=== PATIENT | female | born 2000 | race American Indian/Alaskan Native ===

== ENCOUNTER 2021-12-01 05:46 | Emergency (ER) | payer SELFPAY ==
[2021-12-01] MEDS ORDERED: IPRATROPIUM/ALBUTEROL SULFATE 3 ML AMPUL.NEB IH ONE (06:13)
[2021-12-01] MEDS ORDERED: methylPREDNISolone Sod Succinate 125 MG/2 ML INJ IM ONE (06:13)
--- NOTE | 2021-12-01 06:22 | Emergency Department Report ---
ED Asthma HPI - General Stated Complaint: SOB/ASTHMA Time Seen by Provider: 12/01/21 06:13 Source: patient, EMS - History of Present Illness Initial Comments: Patient is 21 years old female with history of asthma. Patient brought to the emergency room via EMS from her workplace after patient started to have shortness of breath and wheezing. Upon arrival to the ER patient stated that she is feeling already better but is complaining of tightness in her chest. Patient reported symptoms of upper respiratory infection including dry cough runny nose and congestion. She denied any fever or chills. No chest pain. MD Complaint: "asthma attack", shortness of breath, wheezing -: This morning Severity: moderate Context: recent URI Associated Symptoms: dry cough - Related Data Current Asthma Therapy: none Allergies Allergy/AdvReac Type Severity Reaction Status Date / Time No Known Allergies Allergy Unverified 12/01/21 07:29 ED Review of Systems ROS: Stated complaint: SOB/ASTHMA Other details as noted in HPI Comment: All other systems reviewed and negative Constitutional: denies: chills, fever Respiratory: cough, shortness of breath, SOB with exertion, SOB at rest, wheezing. denies: orthopnea Cardiovascular: denies: chest pain, palpitations, dyspnea on exertion Gastrointestinal: denies: abdominal pain, nausea, vomiting, diarrhea, constipation, hematemesis, melena, hematochezia Musculoskeletal: denies: back pain Neurological: denies: headache, weakness, numbness, paresthesias, confusion, abnormal gait ED Physical Exam - General General appearance: alert, in no apparent distress - Head Head exam: Present: atraumatic, normocephalic, normal inspection - Eye Eye exam: Present: normal appearance - ENT ENT exam: Present: normal exam, normal orophraynx, mucous membranes moist - Neck Neck exam: Present: normal inspection, full ROM. Absent: tenderness, meningismus - Respiratory Respiratory exam: Present: wheezes (mild), prolonged expiratory. Absent: respiratory distress, rales, rhonchi, accessory muscle use, decreased breath sounds - Cardiovascular Cardiovascular Exam: Present: regular rate, normal rhythm, normal heart sounds - GI/Abdominal GI/Abdominal exam: Present: soft, normal bowel sounds. Absent: distended, tenderness, guarding, rebound, rigid, mass, bruit, pulsatile mass, hernia - Extremities Exam Extremities exam: Present: normal inspection, full ROM, normal capillary refill. Absent: tenderness, pedal edema, joint swelling, calf tenderness - Back Exam Back exam: Present: normal inspection, full ROM. Absent: CVA tenderness (R), CVA tenderness (L) - Neurological Exam Neurological exam: Present: alert, oriented X3, CN II-XII intact, normal gait, reflexes normal. Absent: motor sensory deficit - Psychiatric Psychiatric exam: Present: normal mood - Skin Skin exam: Present: warm, intact, normal color ED Course Vital Signs 12/01/21 12/01/21 12/01/21 06:00 07:48 07:50 Temperature 98 F Pulse Rate 71 67 Pulse Rate [ 79 Anterior Bilateral Throughout] Pulse Rate [ 78 Anterior Bilateral] Respiratory 18 20 Rate Respiratory 20 Rate [Anterior Bilateral Throughout] Respiratory 20 Rate [Anterior Bilateral] Blood Pressure 128/84 Blood Pressure 118/81 [Right] O2 Sat by Pulse 100 98 Oximetry 12/01/21 08:18 Temperature Pulse Rate Pulse Rate [ Anterior Bilateral Throughout] Pulse Rate [ Anterior Bilateral] Respiratory Rate Respiratory Rate [Anterior Bilateral Throughout] Respiratory Rate [Anterior Bilateral] Blood Pressure Blood Pressure [Right] O2 Sat by Pulse 100 Oximetry ED Medical Decision Making - Lab Data Result diagrams: 12/01/21 06:41 12/01/21 06:41 - EKG Data -: EKG Interpreted by Ct EKG shows normal: sinus rhythm Rate: normal - EKG Data Interpretation: no acute changes - Radiology Data Radiology results: report reviewed - Medical Decision Making Patient is 21 years old female with history of asthma. Patient brought to the emergency room via EMS from her workplace after patient started to have shortness of breath and wheezing. Upon arrival to the ER patient stated that she is feeling already better but is complaining of tightness in her chest. Patient reported symptoms of upper respiratory infection including dry cough runny nose and congestion. She denied any fever or chills. No chest pain. EKG is unremarkable. Chest x-ray is negative for acute finding. Labs reviewed and is unremarkable. Patient received albuterol and Atrovent. Patient stated that she is feeling much better. No wheezing on exam. Patient given prescription for albuterol and advised to follow-up with her primary doctor in the next 2 to 3 days and to return to the ER if she develop any new symptoms. Critical care attestation.: If time is entered above; I have spent that time in minutes in the direct care of this critically ill patient, excluding procedure time. ED Disposition Clinical Impression: Acute asthma exacerbation Disposition: 01 HOME / SELF CARE / HOMELESS Is pt being admited?: No Condition: Stable Instructions: Asthma, Adult Referrals: [facility] [Provider Group] - 3-5 Days
[2021-12-01 07:04] LABS: Hematocrit 35.5 % (30.3-42.9); Hemoglobin 12.1 gm/dl (10.1-14.3); Mean Corpuscular HGB Conc 34 % (30-34); Mean Corpuscular Volume 89 fl (79-97); Platelet Count 245 K/mm3 (140-440)
--- NOTE | 2021-12-01 07:11 | XRay Report ---
XR chest 1V ap INDICATION / CLINICAL INFORMATION: Asthma. COMPARISON: None available. FINDINGS: SUPPORT DEVICES: None. HEART /PULMONARY VASCULATURE: No significant abnormality. LUNGS / PLEURA: No significant pulmonary or pleural abnormality. No pneumothorax. ADDITIONAL FINDINGS: No significant additional findings. IMPRESSION: 1. No acute findings. Signer Name: Gene Lieberman MD Signed: 12/01/2021 7:07 AM Workstation Name: [id number]
[2021-12-01 07:16] LABS: BUN/Creatinine Ratio 11; Blood Urea Nitrogen 9 mg/dL (7-17); Calcium 8.7 mg/dL (8.4-10.2); Hemolysis Index 4
[2021-12-01 07:48] VITALS: BP 118/81
[2021-12-01 08:35] LABS: Basophils % (Manual) 0 % (0.0-1.8); Platelet Estimate Consistent w Auto; RBC Morphology Normal; Total Cells Counted 100
--- NOTE | 2021-12-02 12:14 | Electrocardiograph Report ---
[facility] Test Date: 2021-12-01 Test Time: 08:35:22 Pat Name: MAYDA PERKINS Department: Room: Gender: F Farm Facility Manager: DELROY : [id number] Requested By: ONEIL GHOSH Order Number: [id number] Reading MD: Tin Nelson Measurements Intervals [place] Rate: 80 P: -15 MO: 191 QRS: -27 QRSD: 90 T: 10 QT: 407 QTc: 469 Interpretive Statements Sinus rhythm No previous ECG available for comparison Electronically Signed On 12-02-2021 12:14:10 EDT by Tin Nelson
== END 2021-12-01 09:10 | disposition home or self-care (01) ==
LOC: ED 05:46
DX: J45.901 Unspecified asthma with (acute) exacerbation (principal)
CPT/HCPCS: 36415; 71045; 80048; 85007; 85025; 93005; 94640; 96372; 99284; J2930; 94644